=== PATIENT | female | born 1960 | race Caucasian/White ===

== ENCOUNTER → 2019-10-04 | Outpatient (CLI) | payer BC | LOC: COL.RAD 13:45 | DX: K76.0 Fatty (change of) liver, not elsewhere classified (principal) | CPT/HCPCS: Q9967 ==

== ENCOUNTER → 2020-06-04 | Outpatient (CLI) | payer BC | LOC: MC.RAD 13:02 | DX: Z12.31 Encounter for screening mammogram for malignant neoplasm of breast (principal) ==

== ENCOUNTER 2023-11-25 07:11 | Emergency (ER) | payer BC ==
[~2023-11-25] VITALS: Ht 160 cm; Wt 112.7 kg
[2023-11-25 07:17] VITALS: TEMP 97.7
[2023-11-25] MEDS ORDERED: SYNTHROID 0.10.15 MG PO (07:29)
[2023-11-25] MEDS ORDERED: PRINZIDE 12.5 M1 TAB PO (07:29)
[2023-11-25] MEDS ORDERED: Mag/Al Hydrox/Simeth Susp 30 ML CUP PO ONE (07:30)
[2023-11-25 07:37] LABS: BASO # 0.1 K/mm3 (0.0-0.2); BASO % 0.8 % (0.0-2.0); EOS # 0.3 K/mm3 (0.0-0.7); GRAN # 3.7 K/mm3 (1.4-6.5); GRAN % 56.1 % (42.2-75.2); HEMOGLOBIN 16.4 g/dl (12.5-16.0); LYMPH # 1.9 K/mm3 (1.2-3.4); LYMPH % 28.7 % (20.0-51.0); MEAN CELL VOLUME 87 fl (80.0-100.0); MEAN CORPUSCULAR HEMOGLOBIN 30 pg (27-31); MEAN CORPUSCULAR HGB CONC 35 g/dl (33.0-37.0); MEAN PLATELET VOLUME 10.4 fl (7.4-10.4); MONO # 0.6 K/mm3 (0.1-0.6); MONO % 9.1 % (1.7-9.3); PLATELET COUNT 228 K/mm3 (130-400); RED BLOOD COUNT 5.41 M/mm3 (4.10-5.30); REDCELL DISTRIBUTION WIDTH-CV 12.5 % (11.5-14.5)
[2023-11-25 07:52] LABS: CALCIUM 9.4 mg/dL (8.4-10.2); CREATININE, serum 0.82 mg/dL (0.57-1.11); POTASSIUM 4.1 mEq/L (3.5-4.5); TOTAL PROTEIN 7.3 g/dl (6.2-8.1)
[2023-11-25 07:57] LABS: TROPONIN-I 0.01 ng/mL (0.00-0.033)
[2023-11-25 08:07] LABS: BILIRUBIN,TOTAL 0.4 mg/dL (0.2-1.2)
[2023-11-25] MEDS ORDERED: LOPRESSOR 225 MG/TAB PO (14:35)
[2023-11-25 14:46] VITALS: BP 162/84; PULSE 50
== END 2023-11-25 14:57 | disposition home or self-care (01) ==
LOC: COL.ER 07:11
PROVIDERS: Family Medicine
DX: R07.89 Other chest pain (principal); Z87.891 Personal history of nicotine dependence

== ENCOUNTER 2024-03-18 06:03 | Emergency (ER) | payer MEDICARE ==
[~2024-03-18] VITALS: Ht 160 cm; Wt 110.9 kg
[~2024-03-18 06:03] MED LIST: LOPRESSOR 225 MG/TAB PO; PRINZIDE 12.5 M1 TAB PO; SYNTHROID 0.10.15 MG PO
[2024-03-18 06:12] VITALS: TEMP 98.4
[2024-03-18 07:15] LABS: BASO % 0.4 % (0.0-2.0); EOS # 0.2 K/mm3 (0.0-0.7); EOS % 1.8 % (0.0-4.0); GRAN # 7.8 K/mm3 (1.4-6.5); GRAN % 73.2 % (42.2-75.2); HEMATOCRIT 44.7 % (37.0-47.0); HEMOGLOBIN 15.4 g/dl (12.5-16.0); LYMPH # 1.7 K/mm3 (1.2-3.4); LYMPH % 16.2 % (20.0-51.0); MEAN CELL VOLUME 88 fl (80.0-100.0); MEAN CORPUSCULAR HEMOGLOBIN 30 pg (27-31); MEAN CORPUSCULAR HGB CONC 35 g/dl (33.0-37.0); MEAN PLATELET VOLUME 10.7 fl (7.4-10.4); MONO # 0.9 K/mm3 (0.1-0.6); PLATELET COUNT 233 K/mm3 (130-400); RED BLOOD COUNT 5.09 M/mm3 (4.10-5.30); REDCELL DISTRIBUTION WIDTH-CV 12.9 % (11.5-14.5)
[2024-03-18] MEDS ORDERED: NS 1,000 ML IV ONE (07:15)
[2024-03-18] MEDS ORDERED: Ondansetron 4 MG/2 ML VIAL IV ONE (07:15)
[2024-03-18] MEDS ORDERED: Morphine 4 MG/ML VIAL IV PRN (07:15)
[2024-03-18 07:17] LABS: URINE APPEARANCE CLEAR (CLEAR/HAZY); URINE BLOOD NEGATIVE (NEGATIVE); URINE COLOR YELLOW (YELLOW); URINE GLUCOSE NEGATIVE (NEGATIVE); URINE KETONE NEGATIVE (NEGATIVE); URINE NITRATE NEGATIVE (NEGATIVE); URINE PROTEIN(semi-quant) NEGATIVE (NEGATIVE); URINE UROBILINOGEN 0.2 E.U/dL (0.2-1.0)
[2024-03-18 07:28] LABS: COLLECTION METHOD CATHETER
[2024-03-18 07:34] LABS: ALBUMIN 3.4 g/dL (3.4-4.8); BILIRUBIN,TOTAL 0.4 mg/dL (0.2-1.2); CREATININE, serum 0.84 mg/dL (0.57-1.11); POTASSIUM 3.6 mEq/L (3.5-4.5); TOTAL PROTEIN 7.1 g/dl (6.2-8.1)
[2024-03-18] MEDS ORDERED: Acetaminophen 500 MG TAB PO ONE (08:00)
[2024-03-18] MEDS ORDERED: Iohexol 300 - 100 ML VIAL IV ONE (08:48)
[2024-03-18] MEDS ORDERED: NS 100 ML IV SCH (08:49)
[2024-03-18] MEDS ORDERED: FLAGYL500 MG PO (10:10)
[2024-03-18] MEDS ORDERED: CIPRO 500MG TA500 MG PO (10:10)
[2024-03-18] MEDS ORDERED: PERCOCET 325 MG1 TA2 PO (10:11)
[2024-03-18] MEDS ORDERED: Ciprofloxacin 500 MG TAB PO ONE (10:15)
[2024-03-18] MEDS ORDERED: metroNIDAZOLE 250 MG TAB PO ONE (10:15)
[2024-03-18 10:33] VITALS: BP 134/71; PULSE 57
== END 2024-03-18 10:33 | disposition home or self-care (01) ==
LOC: COL.ER 06:03
PROVIDERS: Personal Emergency Response Attendant
DX: K57.32 Diverticulitis of large intestine without perforation or abscess without bleeding (principal); R39.198 Other difficulties with micturition; Z90.49 Acquired absence of other specified parts of digestive tract; Z96.0 Presence of urogenital implants; Z88.0 Allergy status to penicillin
CPT/HCPCS: A4314; J2405; J7030; Q9967